=== PATIENT | female | born 1965 | race Caucasian/White ===

== ENCOUNTER 2017-01-26 19:15 | Emergency (ER) | payer MEDICARE ==
[~2017-01-26 19:15] MED LIST: ALBUTEROL IN200 PUFF INH; AUGMENTIN 875-1 EACH PO; AZOR 10-20 MG1 EACH PO; AZOR 5-20 MG T1 EACH PO; CHILDRENS CHEWA81 MG PO; COLACE100 MG PO; COREG12.5 MG PO; GLUCOPHAGE500 MG PO; LYRICA100 MG PO; NITROSTAT0.4 MG SL; OXYCODONE-ACET1 EACH PO; PAIN RELIEVER650 MG PO; PRAVASTATIN SOD10 MG PO; PROTONIX40 MG PO; ROBAXIN500 MG PO; [UNRECOGNIZED DRUG - SUPPLY] MC
[2017-01-26 21:38] LABS: BASO # 0.1 10_X3_uL (0.0-0.1); BASO % 0.7 % (0.1-1.2); EOS # 0.2 10_X3_uL (0.0-0.4); GRAN # 4.7 10_X3_uL (1.6-6.1); GRAN % 49.5 % (34.0-71.1); HEMATOCRIT 41.3 % (34-45); HEMOGLOBIN 13.6 g/dL (11.2-15.7); LYMPH # 3.8 10_X3_uL (1.2-3.7); LYMPH % 39.8 % (19.3-51.7); MEAN CORPUSCULAR HGB CONC 32.9 g/dL (32.0-36.0); MEAN CORPUSCULAR VOLUME 88.1 fL (79-95); MEAN PLATELET VOLUME 9.8 fl (7.5-11.5); MONO # 0.8 10_X3_uL (0.2-0.9); PLATELET COUNT 279 x10_3/uL (182-369); RED BLOOD COUNT 4.69 x10_6/uL (3.9-5.2); RED CELL DISTRIBUTION WIDTH 14.9 % (11.7-14.4); WHITE BLOOD COUNT 9.6 x10_3/uL (4.0-10.0)
== END 2017-01-27 00:20 | disposition home or self-care (01) ==
LOC: ER 19:15
PROVIDERS: General Practice
DX: K92.1 Melena (principal); K64.4 Residual hemorrhoidal skin tags; R11.0 Nausea; Z86.010 Personal history of colon polyps; Z88.8 Allergy status to other drugs, medicaments and biological substances; Z88.6 Allergy status to analgesic agent; Z79.899 Other long term (current) drug therapy; Z79.84 Long term (current) use of oral hypoglycemic drugs
CPT/HCPCS: 36415; 85025; 99283; 99285-25; G0328-QW

== ENCOUNTER → 2017-02-11 | Day surgery (SDC) | payer MEDICARE, OTHER ==
[~2017-02-11] VITALS: Ht 167.6 cm; Wt 125.2 kg
== END ==
LOC: OPS 11:30
PROC: 0DB48ZX Excision of Esophagogastric Junction, Via Natural or Artificial Opening Endoscopic, Diagnostic (ICD-10-PCS; principal; 2017-02-11)
PROC: 0DB68ZX Excision of Stomach, Via Natural or Artificial Opening Endoscopic, Diagnostic (ICD-10-PCS; 2017-02-11)
PROC: 0DBK8ZX Excision of Ascending Colon, Via Natural or Artificial Opening Endoscopic, Diagnostic (ICD-10-PCS; 2017-02-11)
DX: K21.9 Gastro-esophageal reflux disease without esophagitis (principal); K29.50 Unspecified chronic gastritis without bleeding; K31.9 Disease of stomach and duodenum, unspecified; K63.5 Polyp of colon; K57.90 Diverticulosis of intestine, part unspecified, without perforation or abscess without bleeding; K64.8 Other hemorrhoids; J44.9 Chronic obstructive pulmonary disease, unspecified; R10.13 Epigastric pain; K62.5 Hemorrhage of anus and rectum; F41.9 Anxiety disorder, unspecified; M51.36 Other intervertebral disc degeneration, lumbar region; M10.9 Gout, unspecified; E78.5 Hyperlipidemia, unspecified; I10 Essential (primary) hypertension; M06.9 Rheumatoid arthritis, unspecified; E03.9 Hypothyroidism, unspecified; K68.9 Other disorders of retroperitoneum; G47.00 Insomnia, unspecified; I05.9 Rheumatic mitral valve disease, unspecified; E66.01 Morbid (severe) obesity due to excess calories; Z68.41 Body mass index [BMI] 40.0-44.9, adult; N83.209 Unspecified ovarian cyst, unspecified side; G25.81 Restless legs syndrome; G47.30 Sleep apnea, unspecified; E11.9 Type 2 diabetes mellitus without complications; E55.9 Vitamin D deficiency, unspecified; F32.9 Major depressive disorder, single episode, unspecified; M32.9 Systemic lupus erythematosus, unspecified; Z88.8 Allergy status to other drugs, medicaments and biological substances; Z88.6 Allergy status to analgesic agent; Z79.899 Other long term (current) drug therapy
CPT/HCPCS: 43239; 45380; 82962; 94664; 99070; J2704; J3010